=== PATIENT | male | born 1990 | race Hispanic/Latino ===

== ENCOUNTER 2019-12-20 23:11 | Emergency (ER) | payer MEDICAID, OTHER ==
[2019-12-20] MEDS ORDERED: ONDANSETRON HCL 4 MG/2 ML VIAL ONE (23:32)
[2019-12-20 23:36] LABS: BASOPHILS % (AUTO) 0.8 % (0.0-5.0); EOSINOPHILS % (AUTO) 4.7 % (0.0-8.0); HEMATOCRIT 40.3 % (42-54); LYMPHOCYTES % (AUTO) 17.2 % (21.0-51.0); MEAN CORPUSCULAR VOLUME 83.3 fL (79-99); MONOCYTES % (AUTO) 6.4 % (3.0-13.0); NEUTROPHILS % (AUTO) 70.7 % (40.0-77.0); PLATELET COUNT (AUTO) 336 K/uL (130-400); RED BLOOD CELL COUNT(AUTO) 4.84 MIL/uL (4.50-6.20); WHITE BLOOD COUNT (AUTO) 13.1 K/uL (4.8-10.8)
[2019-12-20 23:45] LABS: CREATININE 1.3 mg/dL (0.5-1.5)
[2019-12-20 23:50] LABS: ALBUMIN 4.3 g/dL (3.5-5.0); BILIRUBIN,TOTAL 0.5 mg/dL (0.2-1.0); TOTAL PROTEIN, SERUM 8.3 g/dL (6.0-8.3)
[2019-12-21 00:03] LABS: PARTIAL THROMBOPLASTIN TIME 24.9 SEC (26.3-35.5); PROTHROMBIN TIME 10.8 SEC (9.6-11.6)
== END 2019-12-21 01:02 | disposition home or self-care (01) ==
LOC: EDH 23:11
DX: K29.70 Gastritis, unspecified, without bleeding (principal); K92.0 Hematemesis
CPT/HCPCS: 36415; 80053; 83690; 85025; 85610; 85730; 93005; 96361; 96374; 96375; 99284; J2405

== ENCOUNTER 2023-12-23 04:02 | Emergency (ER) | payer SELFPAY ==
[~2023-12-23] VITALS: Ht 162.6 cm; Wt 71.7 kg
[2023-12-23] MEDS: HYDROCORTISONE 1% CREAM 28G TP SCH (05:00)
[2023-12-23] MEDS: DiphenhydrAMINE HCL 50 MG/ML VIAL IM ONE (05:04)
[2023-12-23] MEDS: SOLU-MEDROL 125MG VIAL IM ONE (05:04)
[2023-12-23 05:51] VITALS: BP 121/74; PULSE 74; RESP 20; O2SAT 100
== END 2023-12-23 06:23 | disposition home or self-care (01) ==
LOC: EDH 04:02
DX: T78.40XA Allergy, unspecified, initial encounter (principal); X58.XXXA Exposure to other specified factors, initial encounter
CPT/HCPCS: 99284; 96372 ×2; J1200; J2919